=== PATIENT | female | born 1930 | race Caucasian/White ===

== ENCOUNTER 2018-04-09 15:14 | Inpatient (IN) | payer MEDICARE, OTHER ==
[~2018-04-09 15:14] MED LIST: DEXAMETHASONE 4 MG/ML 1 ML INJ
[2018-04-09] MEDS: LACTATED RINGER'S 1,000 ML IV* (15:53)
[2018-04-09] MEDS ORDERED: ROPIVACAINE 0.5 % 30 ML VIAL (17:57)
[2018-04-09] MEDS ORDERED: FENTAnyl 50 MCG/ML VIAL (17:58)
[2018-04-09] MEDS ORDERED: MIDAZOLAM 1 MG/ML 2 ML INJ (17:59)
[2018-04-09] MEDS ORDERED: ONDANSETRON 4 MG INJ (18:14)
[2018-04-09] MEDS ORDERED: CEFAZOLIN 1 GM INJ (18:17)
[2018-04-09] MEDS ORDERED: HYDROCODONE/APAP (5/325) TAB PO (23:00)
[2018-04-10] MEDS ORDERED: ONDANSETRON 4 MG INJ IV
[2018-04-10] MEDS: HYDROCODONE/APAP (5/325) TAB PO ×2 (03:42→04:57)
[2018-04-10] MEDS: morphine 2 MG INJ IV ×2 (03:50→16:39)
[2018-04-10 04:59] LABS: ADD MAN DIFF? NO
[2018-04-10 05:06] LABS: WHITE BLOOD COUNT 7.4 10^3/ul (4.8-10.8)
[2018-04-10 05:06] LABS: BASOPHILS % 0.3 % (0.0-2.0); EOSINOPHILS # 0.1 10^3/ul (0.0-0.5); EOSINOPHILS % 1.2 % (0.0-7.0); HEMOGLOBIN 11.2 g/dl (12.0-16.0); LYMPHOCYTES # 0.9 10^3/ul (0.8-2.9); LYMPHOCYTES % 11.7 % (15.0-51.0); MEAN CORPUSCULAR HEMOGLOBIN 31.5 pg (29.0-33.0); MEAN CORPUSCULAR VOLUME 98.3 fl (82.0-101.0); MEAN PLATELET VOLUME 9.7 fl (7.4-10.4); MONOCYTE # 0.7 10^3/ul (0.3-0.9); MONOCYTES % 9.3 % (0.0-11.0); NEUTROPHIL # 5.7 10^3/ul (1.6-7.5); NEUTROPHILS % 77.1 % (39.0-77.0); PLATELET COUNT 136 10^3/UL (140-415); RED BLOOD COUNT 3.56 10^6/ul (4.20-5.40); RED CELL DISTRIBUTION WIDTH 12.8 % (11.5-14.5)
[2018-04-10 05:28] LABS: ALANINE AMINOTRANSFERASE 52 IU/L (13-69); ALBUMIN 3.2 g/dl (3.3-4.9); ALBUMIN/GLOBULIN RATIO 0.96; ALKALINE PHOSPHATASE 128 IU/L (42-121); ANION GAP 9 (8-16); ASPARTATE AMINO TRANSFERASE 65 IU/L (15-46); BILIRUBIN,INDIRECT 1.1 mg/dl (0-1.1); BILIRUBIN,TOTAL 1.1 mg/dl (0.2-1.3); BLOOD UREA NITROGEN 18 mg/dl (7-20); CALCIUM 8.9 mg/dl (8.4-10.2); CARBON DIOXIDE 30 mmol/L (21-31); CHLORIDE 107 mmol/L (97-110); CREATININE 0.73 mg/dl (0.44-1.00); GLUCOSE 107 mg/dl (70-220); MAGNESIUM 1.8 mg/dl (1.7-2.5); PHOSPHORUS 4.4 mg/dl (2.5-4.9); POTASSIUM 4.5 mmol/L (3.5-5.1); SODIUM 141 mmol/L (135-144); TOTAL PROTEIN 6.5 g/dl (6.1-8.1)
[2018-04-10] MEDS: DEXTROSE 5%-0.45% NACL 1,000 ML IV (12:48)
[2018-04-10] MEDS ORDERED: NYSTATIN 30 GM POWDER BTL TOP (22:30)
[2018-04-10] MEDS: POTASSIUM CHLORIDE (SR) 20 MEQ TAB PO (23:32)
[2018-04-10] MEDS: FUROSEMIDE 20 MG TAB PO (23:33)
[2018-04-10] MEDS: CLOTRIMAZOLE 1% 30 GM CR TOP (23:55)
[2018-04-11 06:24] LABS: ADD MAN DIFF? NO
[2018-04-11 06:33] LABS: WHITE BLOOD COUNT 6.6 10^3/ul (4.8-10.8)
[2018-04-11 06:33] LABS: BASOPHILS % 0.3 % (0.0-2.0); EOSINOPHILS % 0.6 % (0.0-7.0); HEMOGLOBIN 10.9 g/dl (12.0-16.0); LYMPHOCYTES # 0.8 10^3/ul (0.8-2.9); LYMPHOCYTES % 11.6 % (15.0-51.0); MEAN CORPUSCULAR HEMOGLOBIN 32.3 pg (29.0-33.0); MEAN CORPUSCULAR VOLUME 97.9 fl (82.0-101.0); MEAN PLATELET VOLUME 10.5 fl (7.4-10.4); MONOCYTE # 0.8 10^3/ul (0.3-0.9); MONOCYTES % 11.5 % (0.0-11.0); NEUTROPHILS % 75.4 % (39.0-77.0); PLATELET COUNT 146 10^3/UL (140-415); RED BLOOD COUNT 3.37 10^6/ul (4.20-5.40); RED CELL DISTRIBUTION WIDTH 12.7 % (11.5-14.5)
[2018-04-11 07:36] LABS: ALANINE AMINOTRANSFERASE 83 IU/L (13-69); ALBUMIN 2.6 g/dl (3.3-4.9); ALKALINE PHOSPHATASE 160 IU/L (42-121); ASPARTATE AMINO TRANSFERASE 85 IU/L (15-46); BILIRUBIN,INDIRECT 1.1 mg/dl (0-1.1); BILIRUBIN,TOTAL 1.1 mg/dl (0.2-1.3); CHOL/HDL RATIO 2.2 RATIO; CHOLESTEROL 114 mg/dl (100-200); HDL CHOLESTEROL 50 mg/dl (33-92); LDL CHOLESTEROL,CALCULATED 49 mg/dl; TOTAL PROTEIN 5.7 g/dl (6.1-8.1); TRIGLYCERIDES 77 mg/dl (0-149)
[2018-04-11 07:57] LABS: ANION GAP 10 (8-16); BLOOD UREA NITROGEN 21 mg/dl (7-20); CALCIUM 8.3 mg/dl (8.4-10.2); CARBON DIOXIDE 25 mmol/L (21-31); CHLORIDE 106 mmol/L (97-110); CREATININE 0.87 mg/dl (0.44-1.00); GLUCOSE 136 mg/dl (70-220); MAGNESIUM 1.8 mg/dl (1.7-2.5); POTASSIUM 3.8 mmol/L (3.5-5.1); SODIUM 137 mmol/L (135-144)
[2018-04-11] MEDS: FERROUS SULFATE (EC) 325 MG TAB PO ×2 (09:00→21:00)
[2018-04-11] MEDS: DOCUSATE SODIUM 100 MG CAP PO ×2 (09:16→21:00)
[2018-04-11] MEDS: ASPIRIN 81 MG TAB PO (09:16)
[2018-04-11] MEDS: CHOLECALCIFEROL 1,000 UNIT TAB PO (09:16)
[2018-04-11] MEDS: DONEPEZIL 10 MG TAB PO (09:16)
[2018-04-11] MEDS: CLOTRIMAZOLE 1% 30 GM CR TOP ×2 (09:17→21:00)
[2018-04-11] MEDS: ENOXAPARIN 40 MG/0.4 ML SYG SC (09:28)
[2018-04-11] MEDS: HYDROCODONE/APAP (5/325) TAB PO (09:30)
[2018-04-12] MEDS: HYDROCODONE/APAP (5/325) TAB PO ×2 (02:14→18:27)
[2018-04-12 06:24] LABS: ADD MAN DIFF? NO
[2018-04-12 06:34] LABS: BASOPHILS % 0.4 % (0.0-2.0); EOSINOPHILS # 0.2 10^3/ul (0.0-0.5); EOSINOPHILS % 4.5 % (0.0-7.0); HEMATOCRIT 31.4 % (37.0-47.0); HEMOGLOBIN 10.4 g/dl (12.0-16.0); LYMPHOCYTES # 0.8 10^3/ul (0.8-2.9); LYMPHOCYTES % 17.8 % (15.0-51.0); MEAN CORPUSCULAR HGB CONC 33.1 g/dl (32.0-37.0); MEAN CORPUSCULAR VOLUME 96.6 fl (82.0-101.0); MEAN PLATELET VOLUME 10.7 fl (7.4-10.4); MONOCYTE # 0.6 10^3/ul (0.3-0.9); MONOCYTES % 13.6 % (0.0-11.0); NEUTROPHILS % 63.3 % (39.0-77.0); PLATELET COUNT 127 10^3/UL (140-415); RED BLOOD COUNT 3.25 10^6/ul (4.20-5.40)
[2018-04-12 06:34] LABS: WHITE BLOOD COUNT 4.7 10^3/ul (4.8-10.8)
[2018-04-12 07:30] LABS: ANION GAP 9 (8-16); BLOOD UREA NITROGEN 19 mg/dl (7-20); CALCIUM 8.4 mg/dl (8.4-10.2); CARBON DIOXIDE 27 mmol/L (21-31); CHLORIDE 108 mmol/L (97-110); CREATININE 0.73 mg/dl (0.44-1.00); GLUCOSE 92 mg/dl (70-220); POTASSIUM 3.7 mmol/L (3.5-5.1); SODIUM 140 mmol/L (135-144)
[2018-04-12] MEDS: ASPIRIN 81 MG TAB PO (08:55)
[2018-04-12] MEDS: DONEPEZIL 10 MG TAB PO (08:55)
[2018-04-12] MEDS: DOCUSATE SODIUM 100 MG CAP PO ×2 (08:55→21:23)
[2018-04-12] MEDS: CHOLECALCIFEROL 1,000 UNIT TAB PO (08:55)
[2018-04-12] MEDS: ENOXAPARIN 40 MG/0.4 ML SYG SC (08:59)
[2018-04-12] MEDS: FERROUS SULFATE (EC) 325 MG TAB PO ×2 (09:00→21:23)
[2018-04-12] MEDS: CLOTRIMAZOLE 1% 30 GM CR TOP ×2 (09:00→21:27)
[2018-04-12] MEDS ORDERED: morphine LIQ (10 MG/5 ML) CUP PO (17:00)
[2018-04-12] MEDS: LORAZEPAM 0.5 MG TAB PO (17:40)
[2018-04-13] MEDS: HYDROCODONE/APAP (5/325) TAB PO ×3 (01:08→19:48)
[2018-04-13] MEDS: FUROSEMIDE 20 MG TAB PO (05:19)
[2018-04-13 05:22] LABS: ADD MAN DIFF? NO
[2018-04-13 05:29] LABS: BASOPHILS % 0.4 % (0.0-2.0); EOSINOPHILS # 0.3 10^3/ul (0.0-0.5); EOSINOPHILS % 5.8 % (0.0-7.0); HEMOGLOBIN 11.2 g/dl (12.0-16.0); LYMPHOCYTES # 0.7 10^3/ul (0.8-2.9); LYMPHOCYTES % 13.8 % (15.0-51.0); MEAN CORPUSCULAR HEMOGLOBIN 33.2 pg (29.0-33.0); MEAN CORPUSCULAR HGB CONC 33.9 g/dl (32.0-37.0); MEAN CORPUSCULAR VOLUME 97.9 fl (82.0-101.0); MEAN PLATELET VOLUME 10.1 fl (7.4-10.4); MONOCYTE # 0.5 10^3/ul (0.3-0.9); MONOCYTES % 9.8 % (0.0-11.0); NEUTROPHIL # 3.5 10^3/ul (1.6-7.5); PLATELET COUNT 134 10^3/UL (140-415); RED BLOOD COUNT 3.37 10^6/ul (4.20-5.40); RED CELL DISTRIBUTION WIDTH 12.6 % (11.5-14.5)
[2018-04-13 05:43] LABS: ALANINE AMINOTRANSFERASE 63 IU/L (13-69); ALBUMIN/GLOBULIN RATIO 0.93; ALKALINE PHOSPHATASE 198 IU/L (42-121); ANION GAP 9 (8-16); ASPARTATE AMINO TRANSFERASE 70 IU/L (15-46); BLOOD UREA NITROGEN 19 mg/dl (7-20); CALCIUM 8.6 mg/dl (8.4-10.2); CARBON DIOXIDE 28 mmol/L (21-31); CHLORIDE 108 mmol/L (97-110); CREATININE 0.74 mg/dl (0.44-1.00); GLUCOSE 84 mg/dl (70-220); SODIUM 141 mmol/L (135-144); TOTAL PROTEIN 6.2 g/dl (6.1-8.1)
[2018-04-13] MEDS: FERROUS SULFATE (EC) 325 MG TAB PO (09:00)
[2018-04-13] MEDS: POTASSIUM CHLORIDE (SR) 20 MEQ TAB PO (09:02)
[2018-04-13] MEDS: DOCUSATE SODIUM 100 MG CAP PO (09:02)
[2018-04-13] MEDS: CHOLECALCIFEROL 1,000 UNIT TAB PO (09:02)
[2018-04-13] MEDS: DONEPEZIL 10 MG TAB PO (09:02)
[2018-04-13] MEDS: ASPIRIN 81 MG TAB PO (09:02)
[2018-04-13] MEDS: ENOXAPARIN 40 MG/0.4 ML SYG SC (09:03)
[2018-04-13] MEDS: CLOTRIMAZOLE 1% 30 GM CR TOP (09:03)
== END 2018-04-13 20:30 | DRG 512 ==
LOC: SDS 15:14 → MS1 23:17 → SDS 23:49 → MS1 23:42
PROC: 0PSH04Z Reposition Right Radius with Internal Fixation Device, Open Approach (ICD-10-PCS; principal; 2018-04-09 17:00)
PROC: 0PSK04Z Reposition Right Ulna with Internal Fixation Device, Open Approach (ICD-10-PCS; 2018-04-09 17:00)
PROC: 01N50ZZ Release Median Nerve, Open Approach (ICD-10-PCS; 2018-04-09 17:00)
DX: S52.571A Other intraarticular fracture of lower end of right radius, initial encounter for closed fracture (principal); S52.201A Unspecified fracture of shaft of right ulna, initial encounter for closed fracture; G56.01 Carpal tunnel syndrome, right upper limb; F03.90 Unspecified dementia, unspecified severity, without behavioral disturbance, psychotic disturbance, mood disturbance, and anxiety; E78.5 Hyperlipidemia, unspecified; D50.9 Iron deficiency anemia, unspecified; I35.0 Nonrheumatic aortic (valve) stenosis; L30.4 Erythema intertrigo; W19.XXXA Unspecified fall, initial encounter; R74.0 Nonspecific elevation of levels of transaminase and lactic acid dehydrogenase [LDH]
CPT/HCPCS: 73110-RT; 80048; 80053; 80061; 80076; 83735; 84100; 85025; 97110; 97116; 97162; 97164; 97530

== ENCOUNTER 2018-04-13 08:40 | Inpatient (IN) | payer MEDICARE, OTHER ==
[2018-04-14] MEDS: HYDROCODONE/APAP (5/325) TAB PO (02:05)
[2018-04-14] MEDS ORDERED: BISACODYL 10 MG SUPP PR (04:00)
[2018-04-14] MEDS ORDERED: MAGNESIUM HYDROXIDE 30ML CUP PO (04:00)
[2018-04-14 04:25] LABS: ADD UMIC YES; UR AMORPHOUS CRYSTAL FEW /HPF (NONE SEEN); UR ASCORBIC ACID NEGATIVE (NEGATIVE); UR BACTERIA FEW /HPF (NONE SEEN); UR BILIRUBIN (Dip) NEGATIVE (NEGATIVE); UR BLOOD (Dip) 3+ mg/dL (NEGATIVE); UR CALCIUM OXALATE CRYSTAL FEW /HPF (NONE SEEN); UR CLARITY CLOUDY (CLEAR); UR COLOR AMBER (YELLOW); UR GLUCOSE (Dip) NEGATIVE (NEGATIVE); UR KETONES (Dip) NEGATIVE (NEGATIVE); UR LEUKOCYTE ESTERASE (Dip) TRACE Leu/ul (NEGATIVE); UR MUCUS MANY /HPF (NONE SEEN); UR NITRITE (Dip) NEGATIVE (NEGATIVE); UR NONSQUAMOUS EPITHELIAL CELL 1 /HPF (NONE SEEN); UR RBC > 182 /HPF (0-5); UR SPECIFIC GRAVITY (Dip) 1.024 (1.003-1.030); UR SQUAMOUS EPITHELIAL CELL FEW /HPF (FEW); UR TOTAL PROTEIN (Dip) 1+ mg/dl (NEGATIVE); UR UROBILINOGEN (Dip) 2+ mg/dL (NEGATIVE); UR WBC 41 /HPF (0-5)
[2018-04-14] MEDS ORDERED: LACTULOSE 30ML CUP PO (04:30)
[2018-04-14 06:37] LABS: ADD MAN DIFF? NO
[2018-04-14 06:44] LABS: WHITE BLOOD COUNT 4.8 10^3/ul (4.8-10.8)
[2018-04-14 06:44] LABS: BASOPHILS % 0.8 % (0.0-2.0); EOSINOPHILS # 0.3 10^3/ul (0.0-0.5); HEMATOCRIT 32.2 % (37.0-47.0); HEMOGLOBIN 10.8 g/dl (12.0-16.0); LYMPHOCYTES # 0.7 10^3/ul (0.8-2.9); LYMPHOCYTES % 13.5 % (15.0-51.0); MEAN CORPUSCULAR HGB CONC 33.5 g/dl (32.0-37.0); MEAN CORPUSCULAR VOLUME 95.5 fl (82.0-101.0); MEAN PLATELET VOLUME 9.7 fl (7.4-10.4); MONOCYTE # 0.5 10^3/ul (0.3-0.9); MONOCYTES % 9.9 % (0.0-11.0); NEUTROPHIL # 3.4 10^3/ul (1.6-7.5); NEUTROPHILS % 69.4 % (39.0-77.0); PLATELET COUNT 156 10^3/UL (140-415); RED BLOOD COUNT 3.37 10^6/ul (4.20-5.40); RED CELL DISTRIBUTION WIDTH 12.5 % (11.5-14.5)
[2018-04-14 07:25] LABS: ALANINE AMINOTRANSFERASE 75 IU/L (13-69); ALBUMIN 2.9 g/dl (3.3-4.9); ALKALINE PHOSPHATASE 236 IU/L (42-121); ANION GAP 11 (8-16); ASPARTATE AMINO TRANSFERASE 90 IU/L (15-46); BILIRUBIN,INDIRECT 0.8 mg/dl (0-1.1); BILIRUBIN,TOTAL 0.8 mg/dl (0.2-1.3); BLOOD UREA NITROGEN 21 mg/dl (7-20); CALCIUM 8.5 mg/dl (8.4-10.2); CARBON DIOXIDE 25 mmol/L (21-31); CHLORIDE 108 mmol/L (97-110); CREATININE 0.74 mg/dl (0.44-1.00); GLUCOSE 94 mg/dl (70-220); POTASSIUM 3.9 mmol/L (3.5-5.1); SODIUM 140 mmol/L (135-144); TOTAL PROTEIN 6.1 g/dl (6.1-8.1)
[2018-04-14] MEDS: DONEPEZIL 10 MG TAB PO (08:58)
[2018-04-14] MEDS: CLOTRIMAZOLE 1% 30 GM CR TOP ×2 (08:58→20:57)
[2018-04-14] MEDS: DOCUSATE SODIUM 100 MG CAP PO ×2 (08:58→21:00)
[2018-04-14] MEDS: CHOLECALCIFEROL 1,000 UNIT TAB PO (08:58)
[2018-04-14] MEDS: FERROUS SULFATE (EC) 325 MG TAB PO ×2 (08:58→20:55)
[2018-04-14] MEDS: ASPIRIN 81 MG TAB PO (08:58)
[2018-04-14] MEDS: ENOXAPARIN 40 MG/0.4 ML SYG SC (09:06)
[2018-04-14] MEDS: ONDANSETRON 4 MG TAB PO (19:55)
[2018-04-14] MEDS: SENNA TAB PO (21:00)
[2018-04-15] MEDS: FUROSEMIDE 20 MG TAB PO (06:41)
[2018-04-15] MEDS: HYDROCODONE/APAP (5/325) TAB PO ×2 (08:35→20:52)
[2018-04-15] MEDS: FERROUS SULFATE (EC) 325 MG TAB PO ×2 (08:35→20:53)
[2018-04-15] MEDS: CHOLECALCIFEROL 1,000 UNIT TAB PO (08:35)
[2018-04-15] MEDS: ASPIRIN 81 MG TAB PO (08:35)
[2018-04-15] MEDS: DOCUSATE SODIUM 100 MG CAP PO ×2 (08:36→20:52)
[2018-04-15] MEDS: CLOTRIMAZOLE 1% 30 GM CR TOP ×2 (08:36→20:52)
[2018-04-15] MEDS: DONEPEZIL 10 MG TAB PO (08:36)
[2018-04-15] MEDS: ENOXAPARIN 40 MG/0.4 ML SYG SC (08:45)
[2018-04-15] MEDS: POTASSIUM CHLORIDE (SR) 20 MEQ TAB PO (08:45)
[2018-04-15] MEDS: SENNA TAB PO (20:52)
[2018-04-15] MEDS: MEMANTINE 5 MG TAB PO (20:53)
[2018-04-16] MEDS: HYDROCODONE/APAP (5/325) TAB PO (01:42)
[2018-04-16] MEDS: LORAZEPAM 2 MG INJ IM (03:04)
[2018-04-16 06:31] LABS: ADD MAN DIFF? NO
[2018-04-16 06:37] LABS: WHITE BLOOD COUNT 5.9 10^3/ul (4.8-10.8)
[2018-04-16 06:37] LABS: BASOPHILS % 0.7 % (0.0-2.0); EOSINOPHILS # 0.1 10^3/ul (0.0-0.5); HEMATOCRIT 33.4 % (37.0-47.0); HEMOGLOBIN 11.3 g/dl (12.0-16.0); LYMPHOCYTES # 0.8 10^3/ul (0.8-2.9); LYMPHOCYTES % 12.8 % (15.0-51.0); MEAN CORPUSCULAR HEMOGLOBIN 31.8 pg (29.0-33.0); MEAN CORPUSCULAR HGB CONC 33.8 g/dl (32.0-37.0); MEAN CORPUSCULAR VOLUME 94.1 fl (82.0-101.0); MEAN PLATELET VOLUME 9.9 fl (7.4-10.4); MONOCYTE # 0.7 10^3/ul (0.3-0.9); MONOCYTES % 11.1 % (0.0-11.0); NEUTROPHIL # 4.3 10^3/ul (1.6-7.5); NEUTROPHILS % 72.9 % (39.0-77.0); PLATELET COUNT 174 10^3/UL (140-415); RED BLOOD COUNT 3.55 10^6/ul (4.20-5.40); RED CELL DISTRIBUTION WIDTH 12.6 % (11.5-14.5)
[2018-04-16 06:51] LABS: ANION GAP 11 (8-16); BLOOD UREA NITROGEN 26 mg/dl (7-20); CALCIUM 8.8 mg/dl (8.4-10.2); CARBON DIOXIDE 26 mmol/L (21-31); CHLORIDE 106 mmol/L (97-110); CREATININE 0.75 mg/dl (0.44-1.00); GLUCOSE 97 mg/dl (70-220); POTASSIUM 3.8 mmol/L (3.5-5.1); SODIUM 139 mmol/L (135-144)
[2018-04-16] MEDS: ASPIRIN 81 MG TAB PO (10:20)
[2018-04-16] MEDS: TIMOLOL 0.5% 5 ML OPH BOTH EYES (10:20)
[2018-04-16] MEDS: DOCUSATE SODIUM 100 MG CAP PO ×2 (10:21→22:27)
[2018-04-16] MEDS: FOLIC ACID 0.4 MG TAB PO (10:21)
[2018-04-16] MEDS: ASCORBIC ACID 500 MG TAB PO (10:21)
[2018-04-16] MEDS: FERROUS SULFATE (EC) 325 MG TAB PO ×2 (10:21→22:27)
[2018-04-16] MEDS: DONEPEZIL 10 MG TAB PO (10:21)
[2018-04-16] MEDS: CHOLECALCIFEROL 1,000 UNIT TAB PO (10:21)
[2018-04-16] MEDS: MEMANTINE 5 MG TAB PO ×2 (10:21→22:27)
[2018-04-16] MEDS: ENOXAPARIN 40 MG/0.4 ML SYG SC (10:22)
[2018-04-16] MEDS: CLOTRIMAZOLE 1% 30 GM CR TOP ×2 (10:22→22:27)
[2018-04-16] MEDS: QUETIAPINE 25 MG TAB PO (22:27)
[2018-04-16] MEDS: SENNA TAB PO (22:27)
[2018-04-17] MEDS: FUROSEMIDE 20 MG TAB PO (06:37)
[2018-04-17] MEDS: ENOXAPARIN 40 MG/0.4 ML SYG SC (09:23)
[2018-04-17] MEDS: DONEPEZIL 10 MG TAB PO (09:24)
[2018-04-17] MEDS: CLOTRIMAZOLE 1% 30 GM CR TOP ×2 (09:24→20:59)
[2018-04-17] MEDS: MEMANTINE 5 MG TAB PO ×2 (09:24→20:52)
[2018-04-17] MEDS: TIMOLOL 0.5% 5 ML OPH BOTH EYES (09:24)
[2018-04-17] MEDS: ASCORBIC ACID 500 MG TAB PO (09:24)
[2018-04-17] MEDS: FOLIC ACID 0.4 MG TAB PO (09:24)
[2018-04-17] MEDS: ASPIRIN 81 MG TAB PO (09:24)
[2018-04-17] MEDS: DOCUSATE SODIUM 100 MG CAP PO ×2 (09:25→21:00)
[2018-04-17] MEDS: FERROUS SULFATE (EC) 325 MG TAB PO ×2 (09:25→20:52)
[2018-04-17] MEDS: CHOLECALCIFEROL 1,000 UNIT TAB PO (09:25)
[2018-04-17] MEDS: POTASSIUM CHLORIDE (SR) 20 MEQ TAB PO (09:33)
[2018-04-17] MEDS: QUETIAPINE 25 MG TAB PO (20:52)
[2018-04-17] MEDS: SENNA TAB PO (21:00)
[2018-04-18] MEDS: DONEPEZIL 10 MG TAB PO (10:08)
[2018-04-18] MEDS: TIMOLOL 0.5% 5 ML OPH BOTH EYES (10:08)
[2018-04-18] MEDS: FOLIC ACID 0.4 MG TAB PO (10:08)
[2018-04-18] MEDS: ASPIRIN 81 MG TAB PO (10:08)
[2018-04-18] MEDS: CHOLECALCIFEROL 1,000 UNIT TAB PO (10:08)
[2018-04-18] MEDS: CLOTRIMAZOLE 1% 30 GM CR TOP ×2 (10:08→20:39)
[2018-04-18] MEDS: MEMANTINE 5 MG TAB PO ×2 (10:08→20:39)
[2018-04-18] MEDS: ASCORBIC ACID 500 MG TAB PO (10:08)
[2018-04-18] MEDS: FERROUS SULFATE (EC) 325 MG TAB PO ×2 (10:09→20:38)
[2018-04-18] MEDS: DOCUSATE SODIUM 100 MG CAP PO ×2 (10:09→20:38)
[2018-04-18] MEDS: ENOXAPARIN 40 MG/0.4 ML SYG SC (10:10)
[2018-04-18] MEDS: SENNA TAB PO (20:39)
[2018-04-18] MEDS: QUETIAPINE 25 MG TAB PO (20:39)
[2018-04-19] MEDS: MEMANTINE 5 MG TAB PO ×2 (09:41→21:24)
[2018-04-19] MEDS: CHOLECALCIFEROL 1,000 UNIT TAB PO (09:41)
[2018-04-19] MEDS: ASPIRIN 81 MG TAB PO (09:41)
[2018-04-19] MEDS: DONEPEZIL 10 MG TAB PO (09:41)
[2018-04-19] MEDS: FERROUS SULFATE (EC) 325 MG TAB PO ×2 (09:41→21:24)
[2018-04-19] MEDS: CLOTRIMAZOLE 1% 30 GM CR TOP ×2 (09:42→21:33)
[2018-04-19] MEDS: TIMOLOL 0.5% 5 ML OPH BOTH EYES (09:43)
[2018-04-19] MEDS: ENOXAPARIN 40 MG/0.4 ML SYG SC (09:44)
[2018-04-19] MEDS: DOCUSATE SODIUM 100 MG CAP PO ×2 (09:55→21:23)
[2018-04-19] MEDS: ASCORBIC ACID 500 MG TAB PO (09:56)
[2018-04-19] MEDS: FOLIC ACID 0.4 MG TAB PO (09:56)
[2018-04-19] MEDS: LEVOFLOXACIN 500 MG TAB PO (14:17)
[2018-04-19] MEDS: SENNA TAB PO (21:23)
[2018-04-19] MEDS: QUETIAPINE 25 MG TAB PO (21:24)
[2018-04-20] MEDS: FUROSEMIDE 20 MG TAB PO (06:09)
[2018-04-20] MEDS: LEVOFLOXACIN 500 MG TAB PO (06:09)
[2018-04-20] MEDS: ASPIRIN 81 MG TAB PO (08:37)
[2018-04-20] MEDS: CLOTRIMAZOLE 1% 30 GM CR TOP ×2 (08:37→22:26)
[2018-04-20] MEDS: TIMOLOL 0.5% 5 ML OPH BOTH EYES (08:37)
[2018-04-20] MEDS: FOLIC ACID 0.4 MG TAB PO (08:37)
[2018-04-20] MEDS: CHOLECALCIFEROL 1,000 UNIT TAB PO (08:38)
[2018-04-20] MEDS: DONEPEZIL 10 MG TAB PO (08:38)
[2018-04-20] MEDS: ASCORBIC ACID 500 MG TAB PO (08:38)
[2018-04-20] MEDS: DOCUSATE SODIUM 100 MG CAP PO ×2 (08:38→22:25)
[2018-04-20] MEDS: MEMANTINE 5 MG TAB PO ×2 (08:38→22:26)
[2018-04-20] MEDS: POTASSIUM CHLORIDE (SR) 20 MEQ TAB PO (08:38)
[2018-04-20] MEDS: FERROUS SULFATE (EC) 325 MG TAB PO ×2 (08:38→22:26)
[2018-04-20] MEDS: ENOXAPARIN 40 MG/0.4 ML SYG SC (08:50)
[2018-04-20] MEDS: SENNA TAB PO (22:25)
[2018-04-20] MEDS: QUETIAPINE 25 MG TAB PO (22:25)
[2018-04-20] MEDS: BALSAM PERU/CASTOR OIL 60 GM TUBE TOP (22:26)
[2018-04-21] MEDS: ACETAMINOPHEN 325 MG TAB PO (00:56)
[2018-04-21] MEDS: CLOTRIMAZOLE 1% 30 GM CR TOP ×2 (09:20→20:25)
[2018-04-21] MEDS: BALSAM PERU/CASTOR OIL 60 GM TUBE TOP ×2 (09:21→20:26)
[2018-04-21] MEDS: FOLIC ACID 0.4 MG TAB PO (09:22)
[2018-04-21] MEDS: TIMOLOL 0.5% 5 ML OPH BOTH EYES (09:22)
[2018-04-21] MEDS: MEMANTINE 5 MG TAB PO ×2 (09:22→20:25)
[2018-04-21] MEDS: FERROUS SULFATE (EC) 325 MG TAB PO ×2 (09:22→20:25)
[2018-04-21] MEDS: ASCORBIC ACID 500 MG TAB PO (09:22)
[2018-04-21] MEDS: ENOXAPARIN 40 MG/0.4 ML SYG SC (09:22)
[2018-04-21] MEDS: CHOLECALCIFEROL 1,000 UNIT TAB PO (09:22)
[2018-04-21] MEDS: DOCUSATE SODIUM 100 MG CAP PO ×2 (09:22→20:25)
[2018-04-21] MEDS: DONEPEZIL 10 MG TAB PO (09:22)
[2018-04-21] MEDS: ASPIRIN 81 MG TAB PO (09:22)
[2018-04-21] MEDS: QUETIAPINE 25 MG TAB PO (20:25)
[2018-04-21] MEDS: SENNA TAB PO (20:25)
[2018-04-22] MEDS: LEVOFLOXACIN 500 MG TAB PO (06:36)
[2018-04-22] MEDS: FUROSEMIDE 20 MG TAB PO (06:40)
[2018-04-22] MEDS: ASPIRIN 81 MG TAB PO (08:56)
[2018-04-22] MEDS: FOLIC ACID 0.4 MG TAB PO (08:56)
[2018-04-22] MEDS: MEMANTINE 5 MG TAB PO (08:56)
[2018-04-22] MEDS: DOCUSATE SODIUM 100 MG CAP PO (08:56)
[2018-04-22] MEDS: TIMOLOL 0.5% 5 ML OPH BOTH EYES (08:56)
[2018-04-22] MEDS: FERROUS SULFATE (EC) 325 MG TAB PO (08:57)
[2018-04-22] MEDS: DONEPEZIL 10 MG TAB PO (08:57)
[2018-04-22] MEDS: CHOLECALCIFEROL 1,000 UNIT TAB PO (08:57)
[2018-04-22] MEDS: POTASSIUM CHLORIDE (SR) 20 MEQ TAB PO (08:57)
[2018-04-22] MEDS: ASCORBIC ACID 500 MG TAB PO (08:57)
[2018-04-22] MEDS: BALSAM PERU/CASTOR OIL 60 GM TUBE TOP (08:59)
[2018-04-22] MEDS: CLOTRIMAZOLE 1% 30 GM CR TOP (08:59)
[2018-04-22] MEDS: ENOXAPARIN 40 MG/0.4 ML SYG SC (08:59)
[2018-04-28] MEDS ORDERED: NYSTATIN 30 GM POWDER BTL TOP (09:00)
== END 2018-04-22 11:30 | disposition home health service (06) | DRG 560 ==
LOC: VRC 08:40
PROC: F07Z5ZZ Bed Mobility Treatment (ICD-10-PCS; principal; 2018-04-13)
PROC: F08Z2ZZ Grooming/Personal Hygiene Treatment (ICD-10-PCS; 2018-04-13)
DX: S52.91XD Unspecified fracture of right forearm, subsequent encounter for closed fracture with routine healing (principal); N39.0 Urinary tract infection, site not specified; S52.201D Unspecified fracture of shaft of right ulna, subsequent encounter for closed fracture with routine healing; W18.30XD Fall on same level, unspecified, subsequent encounter; M50.33 Other cervical disc degeneration, cervicothoracic region; R52 Pain, unspecified; E78.5 Hyperlipidemia, unspecified; F03.90 Unspecified dementia, unspecified severity, without behavioral disturbance, psychotic disturbance, mood disturbance, and anxiety; Z79.82 Long term (current) use of aspirin; L30.4 Erythema intertrigo; D50.9 Iron deficiency anemia, unspecified; I35.0 Nonrheumatic aortic (valve) stenosis; G47.00 Insomnia, unspecified; F06.31 Mood disorder due to known physiological condition with depressive features; F41.9 Anxiety disorder, unspecified; R45.1 Restlessness and agitation
CPT/HCPCS: 80048; 80053; 81001; 85025; 87081; 87086; 97110; 97112; 97116; 97163; 97167; 97530; 97535; 97542